=== PATIENT | female | born 1995 | race Two or more races ===

== ENCOUNTER 2023-08-28 11:02 | Outpatient (REF) | payer OTHER, SELFPAY ==
--- NOTE | ~2023-08-28 | MR_ITS ---
MRI ORBITS WITHOUT AND WITH CONTRAST CLINICAL INFORMATION: Severe proptosis. COMPARISON: None available. TECHNIQUE: MRI of the orbits was obtained using routine sequences without and with contrast. Intravenous contrast: Gadavist 10 mL. FINDINGS: Abnormal morphology of the shrunken left globe with the internal characteristics most suggestive of persistent hyperplastic primary vitreous. The left lens is dislocated posteriorly. There is right-sided Buphthalmos; the right globe is significantly enlarged and protrudes significantly more anterior than the left globe. The right globe measures up to 3.2 cm AP by 2.9 cm TV. There are no enhancing lesions within the right globe and correlation for elevated intraocular pressures is advised. The left optic nerve is atrophic. There are no intraorbital mass lesions. Prominent optic nerve CSF sheaths bilaterally that can be correlated for clinical signs of elevated CSF pressures. There is preserved fat within the orbital fissures and pterygopalatine fossa bilaterally. Bone marrow signal is homogenous and normal. The lacrimal glands are normal. Extraocular muscles are not enlarged. There is no pathologic enhancement intracranially. Multiple retention cysts within the maxillary sinuses bilaterally. MR/MR orbits face neck wo/w con IMPRESSION: - Abnormal morphology of the shrunken left globe with the internal characteristics most suggestive of persistent hyperplastic primary vitreous. The left lens is dislocated posteriorly. - There is right-sided Buphthalmos; the right globe is significantly enlarged and protrudes significantly more anterior than the left globe. The right globe measures up to 3.2 cm AP by 2.9 cm TV. There are no enhancing lesions within the right globe and correlation for elevated intraocular pressures/glaucoma is advised. - Prominent optic nerve CSF sheaths bilaterally that can be correlated for clinical signs of elevated CSF pressures. - The left optic nerve is atrophic.
[2023-08-28] MEDS: gadobutroL 10 ML VIAL IVPUSH (13:08)
== END 2023-08-28 11:03 | disposition home or self-care (01) ==
LOC: HO.MRI 11:02
PROVIDERS: PCP Internal Medicine; Visit Provider Ophthalmology
DX: H05.242 Constant exophthalmos, left eye (principal)
CPT/HCPCS: 70543; A9585

== ENCOUNTER 2025-06-04 08:13 | Outpatient (AMB) | payer OTHER, SELFPAY ==
--- NOTE | 2025-06-04 10:19 | A.OFFVIS_ITS ---
VS Expanded 06/04/25 10:28 Height 5 ft 2 in Weight 259 lb BMI 47.4 Body Fat % 44.1 Body Fat Mass 114.2 Fat Free Mass 144.6 Visceral Fat Rating 13 Body Water % 40.1 Body Water Mass 103.8 Basal Metabolic Rate/Score 2,063 Intake Visit Reasons: [employer] SWL/MWL BMI 47.4 Allergies No Known Allergies Allergy (Verified 06/04/25 10:19) Medication List - Last Reconciled 06/04/25 by Juventino Conroy MD fluoxetine 20 mg PO DAILY levothyroxine 75 mcg PO DAILY phentermine 7.5 mg PO DAILY HPI HPI TV [employer] SWL/MWL BMI 47.4: Details: Start time: 10.10am, End time: 10.40am ?I spent 25 minutes speaking with the patient on the phone plus an additional 5 minutes reviewing and updating records for a total of 30 minutes HPI Comments Details: Previous weight loss efforts: self diet and exercise Wakes up: 6am, Sleeps: 1am Breakfast: skips Lunch: skips Dinner: 9pm (pasta, rice with chicken) Snacks: 5-6 times before dinner (chips, pretzels) Exercise: none Beverages: Coffee: occ, Tea: occ, Soda: <1/wk Diet soda, Juice: 1-2/wk, ETOH: none PFSH Medical History (Updated 06/04/25 @ 10:23 by Juventino Conroy MD) Anxiety Depression Hypothyroidism Morbid obesity Surgical History (Updated 05/19/25 @ 14:32 by Clifford Oliveira, RN) History of eye surgery Family History (Updated 05/19/25 @ 14:34 by Clifford Oliveira, RN) Mother Family history not known due to adoption Father Family history not known due to adoption Social History (Updated 05/19/25 @ 14:32 by Clifford Oliveira, RN) Alcohol intake: never Patient Tobacco Use Status: Never used Tobacco Telehealth Telehealth Telehealth Platform: Telephone Location of provider rendering services: practice address Location of patient: address on file Patient Identification confirmed using: Name, : Yes Telehealth method: voice only Patient verbally consented to treatment: Yes Patient verbally consented to billing insurance company: Yes Patient informed of any privacy concerns related to visit: Yes Minutes spent on Phone/Video with Pt.: 30 Assessment & Plan Assessment & Plan (1) Morbid obesity: Code(s): E66.01 - Morbid (severe) obesity due to excess calories Category: Medical Plan: 1. As we discussed, based on your present BMI you are approximately 140lbs overweight. In my opinion, for any weight loss strategy to be successful should have a high probability to help you lose at least 120lbs out of 140lbs of the extra weight you carry. We discussed in detail the available therapeutic options: 1) our lifestyle intervention program that has an average weight loss of 10% in 3 months.?Some patients continue it for longer and have lost over 50lbs but this is not common. Our lifestyle program can be provided by me or by using our software tiffany, the [employer] tiffany. I will provide you with a link to use the tiffany if you choose to do so. We use protein shakes and protein bars to replace some of the meals of the day and cover your appetite better. We will decide together the exact combination. 2) Weight loss medications: these can be used in conjunction with our lifestyle program or you may choose to use them without following a lifestyle program from my program but your own. As we discussed, your insurance requires you to do the lifestyle program for 3 months before they approve the medications. The medication I use more often is called Zepbound and is one shot per week. My office will do the authorizations and we will train you how to use it properly. We also discussed that you can self pay for the first 3 months and the cost is $249 for the first month and $499 for any other month thereafter. These payments go to the drug company directly and not to us. 3) We also discussed about the lap sleeve gastrectomy. In my opinion this is the best option to solve your problem based on your situation and should be used in conjunction with the two previous options. A good strategy to make this decision to proceed with surgery, is to set some goals with the lifestyle intervention and medication options: If you don't lose at least 10lbs the first 6 weeks after starting the program or at least 10% in 3 months. ?I emphasized the importance of close follow-up, adherence to instructions and good communication. The surgery does not replace the need to change your lifestlyle which is the cause of the obesity problem. The surgery provides the motivation to try again to change your lifestyle, it reduces the appetite and make the transition to a better lifestyle easier and doubles the amount of weight you would lose compared to doing the lifestyle change without the surgery. You will need to be on a liquid diet with protein shakes for 2 weeks before surgery to maximize weight loss and boost your nutritional status to recover better from surgery and also for the first two weeks after surgery to let the stomach heal before we introduce other foods. After the first 2 weeks we will introduce protein bars and soft foods like scrambled eggs, cottage cheese and yogurt and after the 6th week will introduce meat, fish and cooked vegetables in small amounts. Over time you should be able to eat everything in small amounts. Side effects like nausea, vomiting, heartburn or abdominal pain are not common in the practice unless you are not following in the practice. This operation requires lifetime commitment to following in our practice and communication with me. You will much less weight and experience side effects if you don?t communicate or not following in the practice. Complications are rare and in our practice is about 1/10 of the national average.
[2025-06-04 10:28] VITALS: BMI 47.4
== END 2025-06-04 10:41 | disposition home or self-care (01) ==
LOC: HO.HBS 08:13
PROVIDERS: PCP Internal Medicine; Visit Provider Surgery
DX: E66.01 Morbid (severe) obesity due to excess calories (principal)
CPT/HCPCS: 99203